=== PATIENT | female | born 1960 | race Caucasian/White ===

== ENCOUNTER → 2017-01-19 | Day surgery (SDC) | payer MEDICARE, OTHER ==
[~2017-01-19] MED LIST: ATOR20TA42 PO; CEPH-460 PO; CITA20 PO; CLON.5 PO; GABA300 PO; LACTATED RINGER'S 1000 ML INJ 1,000 ML ONE; PANT20 PO; PROPOFOL 200 MG/20 ML AMP IV ONE; TOFA5TAB PO; TRAZ50TA4 PO; UMEC1INH INH; WELL150T PO; [UNRECOGNIZED DRUG - OTHER] PO
--- NOTE | 2017-01-19 15:21 | GIPROC ---
[facility] [address] [facility], [id number] EGD PROCEDURE REPORT EXAM DATE: 01/19/2017 PATIENT NAME: Amena Stroud MR #: [id number] BIRTHDATE: 1960 ATTENDING: Mehreen Colin MD ORDER #: [id number] LIFE ADVISOR: STATUS: outpatient INDICATIONS: The patient is a 56 yr old female here for an EGD due to obesity clearence for gastric bypass PROCEDURE PERFORMED: EGD w/ biopsy MEDICATIONS: None and Per Anesthesia. TOPICAL ANESTHETIC: CONSENT: The patient understands the risks and benefits of the procedure and understands that these risks include, but are not limited to: sedation, allergic reaction, infection, perforation and/or bleeding. Alternative means of evaluation and treatment include, among others: physical exam, x-rays, and/or surgical intervention. The patient elects to proceed with this endoscopic procedure. medical equipment was checked for proper function. Hand hygiene and appropriate measures for infection prevention was taken. After the risks, benefits and alternatives of the procedure were thoroughly explained, Informed consent was verified, confirmed and timeout was successfully executed by the treatment team. The patient was anesthetized with topical anesthesia and the EC-[id number] ([id number]) endoscope was introduced through the mouth and advanced to the second portion of the duodenum. Retroflexed views revealed a hiatal hernia The gastroscope was then slowly withdrawn and removed. Gastritis antrum-biopsy esophagitis distal esophagus-biopsy. ADVERSE EVENTS: There were no complications. IMPRESSIONS: 1. Gastritis antrum-biopsy esophagitis distal esophagus-biopsy 2. Retroflexed views revealed a hiatal hernia RECOMMENDATIONS: 1. Anti-reflux regimen 2. Continue PPI 3. Avoid NSAIDS 4. Ok for gastric bypass surgery PATIENT CONDITION: stable DISPOSITION: Home REPEAT EXAM: EGD pending biopsy results Mehreen Colin MD eSigned: Mehreen Colin MD 01/19/2017 3:20 PM cc: Jael Zamudio [facility] Henna Abraham M.D.
== END | disposition home or self-care (01) ==
LOC: ESDC 12:39
PROVIDERS: ATTEND Internal Medicine Gastroenterology
DX: E66.01 Morbid (severe) obesity due to excess calories (principal); K29.70 Gastritis, unspecified, without bleeding; K20.9 Esophagitis, unspecified; K44.9 Diaphragmatic hernia without obstruction or gangrene
CPT/HCPCS: 00740; 43239; 88305; J3010; J7120

== ENCOUNTER 2017-01-27 10:50 | Emergency (ER) | payer MEDICARE, OTHER ==
[~2017-01-27 10:50] MED LIST changes: -CEPH-460 PO; -LACTATED RINGER'S 1000 ML INJ 1,000 ML ONE; -PROPOFOL 200 MG/20 ML AMP IV ONE; -TOFA5TAB PO; -UMEC1INH INH; -[UNRECOGNIZED DRUG - OTHER] PO
[2017-01-27 10:55] VITALS: BP 137/84; PULSE 84; RESP 16; TEMP 97.8; O2SAT 99
[2017-01-27] MEDS ORDERED: UMEC1INH INH (11:02)
[2017-01-27] MEDS ORDERED: [UNRECOGNIZED DRUG - OTHER] PO (11:02)
[2017-01-27] MEDS ORDERED: CEPH-460 PO (11:24)
--- NOTE | 2017-01-27 11:24 | PD ---
HPI Chief Complaint: Injury Time Seen by Provider: 11:22 Travel History International Travel<30 days: No Contact w/Intl Traveler<30days: No Traveled to known affect area: No History of Present Illness HPI 56-year-old male presents to the emergency department with complaint of right third toe pain from stubbing it on a bar stool this morning. Reports the nail bed back and may need to be removed. Denies paresthesias, loss of sensation to the affected toe. Has not taken any medications or tried any treatments to relieve her symptoms. is at the bedside and said the toenail was sticking straight up and he pushed it down. Wrapped the toe and a Band-Aid. Denies fever, vomiting. Allergies to codeine, erythromycin, penicillin. Is having gastric bypass surgery in 1 month and wants to make sure that she doesn' t get infection in the toe. She takes medication for rheumatoid arthritis that suppresses her immune system and the patient is requesting antibiotics. Has no other medical complaints. No other modifying factors or associated signs and symptoms. PFSH Past Medical History Arthritis: Yes (RA) Congestive Heart Failure: Yes Diminished Hearing: Yes (HEARING AIDS BILATERALLY) Endocrine: No Gastrointestinal Disorders: Yes GERD: Yes Glaucoma: No Genitourinary: No Hepatitis: No Hiatal Hernia: No Hypertension: No Immune Disorder: No Neurologic: No Psychiatric: Yes (See EMR) Reproductive: No Respiratory: No Thyroid Disease: No : 2 Para: 2 Past Surgical History Abdominal Surgery: Yes (CHOLECYSTECTOMY) Other Surgery: Yes Social History Alcohol Use: No Tobacco Use: No (pt states she quit smoking approximately 12 weeks ago ) Substance Use: No Allergies-Medications (Allergen,Severity, Reaction): Coded Allergies: Codeine (Verified Allergy, Intermediate, NAUSEA, HIVES, 01/27/17) Erythromycin (Verified Allergy, Intermediate, NAUSEA, HIVES, 01/27/17) Penicillin (Verified Allergy, Intermediate, NAUSEA, HIVES, 01/27/17) Reported Meds & Prescriptions Reported Meds & Active Scripts Active Keflex (Cephalexin) 500 Mg Cap 500 Mg PO Q8H 7 Days Desyrel 50 Mg Tab (Trazodone Hcl) 50 Mg Tab 50 Mg PO HS 10 Days Protonix (Pantoprazole Sodium) 20 Mg Tab 20 Mg PO BID 7 Days Neurontin (Gabapentin) 300 Mg Cap 600 Mg PO DAILY 10 Days Klonopin (Clonazepam) 0.5 Mg Tab 0.5 Mg PO Q12HR 10 Days Celexa 20 Mg Tab (Citalopram Hydrobromide) 20 Mg Tab 30 Mg PO DAILY 10 Days Wellbutrin Sr (Bupropion HCl) 150 Mg Tabcr 150 Mg PO BID 10 Days Lipitor 20 Mg Tab (Atorvastatin) 20 Mg Tab 20 Mg PO HS 7 Days Reported [Exljanz] 5 Mg PO BID Incruse Ellipta Inh (Umeclidinium [place] Inh) 0.0625 Mg/Act Inh 62.5 Mcg INH DAILY Review of Systems Except as stated in HPI: all other systems reviewed are Neg Physical Exam Narrative GENERAL: Well-nourished, well-developed female patient, in no acute distress SKIN: Warm and dry. Right third toenail is intact at the base and about longterm up the toenail; the toe is without deformity and with sensory intact; less than 3 second cap refill; toe is without edema, ecchymosis, erythema. HEAD: Atraumatic. Normocephalic. EYES: Pupils equal and round. No scleral icterus. No injection or drainage. ENT: Mucosa pink and moist. Airway patent. NECK: Trachea midline. CARDIOVASCULAR: Regular rate. RESPIRATORY: No accessory muscle use. GASTROINTESTINAL: Obese. MUSCULOSKELETAL: No obvious deformities. No clubbing. No cyanosis. No edema. NEUROLOGICAL: Awake and alert. Oriented 3. No obvious cranial nerve deficits. Motor grossly within normal limits. Normal speech. PSYCHIATRIC: Appropriate mood and affect; insight and judgment normal. Data Data Last Documented VS Vital Signs Date Time Temp Pulse Resp B/P Pulse Ox O2 Delivery O2 Flow Rate FiO2 01/27/17 10:55 97.8 84 16 137/84 99 [facility] Medical Decision Making Medical Screen Exam Complete: Yes Emergency Medical Condition: Yes Medical Record Reviewed: Yes Differential Diagnosis Toe fracture, toenail avulsion, toe contusion Narrative Course 56-year-old female with a right third toenail that is partially avulsed and a contusion to the toe. I offered to do an x-ray of the toe and the patient declined. I offered the patient a nonnarcotic for pain and she declined. Patient is requesting antibiotics because she is on a medication for her rheumatoid arthritis it suppresses her immune system and she is having surgery next month and does not want an infection. Keflex prescribed for home. Wound care provided and toes ishaan taped together. Patient verbalizes understanding and agreement with treatment plan. Patient is medically cleared and stable for discharge. Discussed reasons to return to the emergency department. Instructed patient to follow up with primary care provider. Patient agrees with treatment plan. The patients vital signs are stable and the patient is stable for outpatient follow-up and treatment. Patient discharged home, stable and in no acute distress. Diagnosis Primary Impression: Contusion of toe with damage to nail Qualified Code: S90.221A - Contusion of lesser toe of right foot with damage to nail, initial encounter Referrals: Primary Care Physician Patient Instructions: Contusion in Adults (ED), General Instructions, Nail Avulsion (ED) Additional Instructions: Ibuprofen or Tylenol as instructed nothing for pain and information Ice to affected toe to decrease pain and inflammation Ishaan tape toe as needed Follow-up with primary care provider Return to the emergency department immediately with worsening of symptoms Med/Other Pt SpecificInfo: Prescription(s) given, No Change to Meds Scripts Cephalexin (Keflex)500 Mg Raz242 Mg PO Q8H 7 Days Ref 0 Prov:Nellie Nicholson 01/27/17 Disposition: DISCHARGE HOME Condition: Stable Nellie Nicholson January 27, 2017 11:24
[2017-01-28] MEDS ORDERED: TOFA5TAB PO (10:53)
== END 2017-01-27 11:42 | disposition home or self-care (01) ==
LOC: NEPK 10:50
DX: S90.221A Contusion of right lesser toe(s) with damage to nail, initial encounter (principal); I50.9 Heart failure, unspecified; W22.03XA Walked into furniture, initial encounter; Y92.009 Unspecified place in unspecified non-institutional (private) residence as the place of occurrence of the external cause
CPT/HCPCS: 99283

== ENCOUNTER → 2017-02-05 | Outpatient (CLI) | payer MEDICARE, OTHER ==
[~2017-02-05] MED LIST changes: +CEPH-460 PO; +TOFA5TAB PO; +UMEC1INH INH
--- NOTE | 2017-02-20 09:16 | RSPPFT ---
DATE OF PROCEDURE: 02/05/17 COMMENTS: Spirometry shows FVC of 2.7 predicted 3.1, FEV1 of 1.9 predicted 2.3, FEV1/FVC ratio 69% predicted 24%. IMPRESSION: On the basis of the above, patient has a mild obstructive lung defect. Air trapping is present with RV at 2.9 predicted 1.8. DLCO is 78%.
== END ==
LOC: HRSP 07:13
PROVIDERS: ATTEND Internal Medicine Pulmonary Disease
DX: G47.30 Sleep apnea, unspecified (principal)
CPT/HCPCS: 94060; 94726; 94729

== ENCOUNTER 2017-04-07 16:22 | Inpatient (IN) | payer MEDICARE, OTHER ==
[~2017-04-07] VITALS: Ht 161.3 cm; Wt 113.7 kg
[2017-04-08] MEDS ORDERED: VANCOMYCIN 1,500 MG/NS 500 ML (for 85-99 kg) IV SCH ×2 (06:00)
[2017-04-08] MEDS ORDERED: metroNIDAZOLE 500 MG INJ 100 ML IV SCH (06:00)
[2017-04-08] MEDS ORDERED: ONDANSETRON HCL 4 MG/2 ML VIAL IV PUSH SCH (06:00)
[2017-04-08] MEDS ORDERED: SCOPOLAMINE 1.5 MG PATCH T-DERMAL SCH (06:00)
[2017-04-08] MEDS ORDERED: APREPITANT 40 MG CAP PO SCH (06:00)
[2017-04-08] MEDS ORDERED: ACETAMINOPHEN 1000 MG/100 ML VIAL IV SCH (06:00)
[2017-04-08] MEDS ORDERED: SODIUM CHLORID 0.9% 500 ML IV PRN (07:00)
[2017-04-08] MEDS ORDERED: POVIDONE IODINE 5% (ANTISEPSIS KIT) 4 APPLICATIONS EACH NARE PRN (07:00)
[2017-04-08] MEDS ORDERED: LACTATED RINGER'S 1000 ML IV PRN (07:00)
[2017-04-08] MEDS ORDERED: INSULIN HUMAN REGULAR 1,000 UNITS/10 ML VIAL SQ PRN (07:00)
[2017-04-08] MEDS ORDERED: METOPROLOL TARTRATE 25 MG TAB PO PRN (07:00)
[2017-04-08] MEDS ORDERED: CHLORHEXIDINE GLUCONATE 2 % 1 PACK (2 CLOTHS) TOPICAL PRN (07:00)
[2017-04-08] MEDS ORDERED: PANT40TA3 PO (07:02)
[2017-04-08] MEDS ORDERED: TOFA5TAB PO (07:02)
[2017-04-08] MEDS ORDERED: TRAZ50TA12 PO (07:02)
[2017-04-08] MEDS ORDERED: BUPR150CR PO (07:02)
[2017-04-08] MEDS ORDERED: ATOR20TA15 PO (07:02)
[2017-04-08] MEDS ORDERED: GABA600T PO (07:02)
[2017-04-08] MEDS ORDERED: CLON0.5T PO (07:02)
[2017-04-08] MEDS ORDERED: UMEC1INH INH (07:02)
[2017-04-08] MEDS ORDERED: CITA20TA4 PO (07:02)
[2017-04-08] MEDS ORDERED: SODIUM CHLOR 0.9% 250 ML INJ 250 ML ONE (07:03)
[2017-04-08] MEDS ORDERED: VANCOMYCIN HCL 1000 MG VIAL ONE (07:03)
[2017-04-08 07:10] VITALS: BP 111/46; PULSE 66; RESP 16; TEMP 97.8; O2SAT 96
[2017-04-08] MEDS ORDERED: MIDAZOLAM HCL 2 MG/2 ML VIAL ONE (09:24)
[2017-04-08] MEDS ORDERED: FAMOTIDINE 20 MG/2 ML VIAL ONE (09:24)
[2017-04-08] MEDS ORDERED: BUPIVACAINE LIPOSOME PF 1.3% 20 ML VIAL INFIL ONE (10:09)
[2017-04-08] MEDS ORDERED: METHYLENE BLUE 100 MG/10 ML VIAL OTHER ONE (10:09)
[2017-04-08] MEDS ORDERED: DO NOT ADM ANY ANTICOAGULANT DRUGS PRN (11:35)
[2017-04-08] MEDS ORDERED: ONDANSETRON HCL 4 MG/2 ML VIAL IV PRN (11:45)
[2017-04-08] MEDS ORDERED: ENALAPRILAT 1.25 MG/ML VIAL IV PUSH PRN (11:45)
[2017-04-08] MEDS ORDERED: Post-op Orders (for Pharmacy) MISC OTHER ONE (11:45)
[2017-04-08] MEDS ORDERED: diphenhydrAMINE HCL 50 MG/ML VIAL IV PRN (11:45)
[2017-04-08] MEDS ORDERED: SODIUM CHLORIDE 0.9% FLUSH 10 ML FLUSH IV FLUSH PRN (11:45)
[2017-04-08] MEDS ORDERED: diphenhydrAMINE HCL ELIXIR 12.5 MG/5 ML CUP PO PRN (11:45)
[2017-04-08] MEDS ORDERED: 1/2 NS + KCL 20 MEQ INJ 1,000 ML ONE (11:50)
[2017-04-08] MEDS ORDERED: *ONDANSETRON 4 MG VIAL PERIprocedural Use ONLY ONE (11:51)
[2017-04-08] MEDS: 1/2 NS + KCL 20 MEQ INJ 1,000 ML IV SCH ×3 (11:56→21:06)
[2017-04-08] MEDS ORDERED: ePHEDrine/NS 25 MG/5 ML SYR IV ONE (12:00)
[2017-04-08] MEDS ORDERED: PROPOFOL 200 MG/20 ML AMP IV ONE (12:00)
[2017-04-08] MEDS ORDERED: *PROMETHAZINE 25 MG/ML VIAL PERIprocedural use ONLY ONE (12:00)
[2017-04-08] MEDS ORDERED: NEOSTIGMINE 3 MG/3 ML SYR IV ONE (12:00)
[2017-04-08] MEDS ORDERED: LACTATED RINGER'S 1000 ML INJ 1,000 ML IV ONE (12:00)
[2017-04-08] MEDS ORDERED: ONDANSETRON HCL 4 MG/2 ML VIAL IV PUSH ONE (12:00)
[2017-04-08] MEDS ORDERED: ACETAMINOPHEN 1000 MG/100 ML VIAL IV ONE (12:00)
[2017-04-08] MEDS: RESP: ALBUTEROL 2.5 MG/3 ML NEB (SCH) INH ×2 (12:00→20:00)
[2017-04-08] MEDS ORDERED: *morphine SULFATE 8 MG/ML PERIprocedure ONLY ONE ×2 (12:39→12:51)
[2017-04-08] MEDS: METOCLOPRAMIDE HCL 10 MG/2 ML VIAL IV PUSH SCH ×2 (13:00→17:31)
[2017-04-08 14:16] VITALS: BP 148/71; PULSE 68; RESP 19; TEMP 95.5; O2SAT 96
[2017-04-08 16:00] VITALS: BP 137/64; PULSE 88; RESP 18; TEMP 95.4; O2SAT 96
[2017-04-08] MEDS: metroNIDAZOLE 500 MG INJ 100 ML IV SCH (16:22)
[2017-04-08] MEDS: ENOXAPARIN SODIUM 40 MG/0.4 ML SYRINGE SQ SCH (16:23)
[2017-04-08 20:00] VITALS: BP 112/58; PULSE 76; RESP 20; TEMP 97.2; O2SAT 95
[2017-04-08] MEDS: SODIUM CHLORIDE 0.9% FLUSH 10 ML FLUSH IV FLUSH SCH (21:06)
[2017-04-08] MEDS: VANCOMYCIN INJ 1,000 MG in SODIUM CHLOR 0.9% 250 ML INJ 250 ML IV SCH (21:07)
[2017-04-09] VITALS (8 sets, daily range): BP systolic 121–175; BP diastolic 58–77; PULSE 76–99; RESP 18–20; TEMP 97.9–100.5; O2SAT 90–97
[2017-04-09] MEDS: RESP: ALBUTEROL 2.5 MG/3 ML NEB (SCH) INH ×6 (00:40→20:31)
[2017-04-09] MEDS: metroNIDAZOLE 500 MG INJ 100 ML IV SCH ×2 (01:56→09:18)
[2017-04-09] MEDS: METOCLOPRAMIDE HCL 10 MG/2 ML VIAL IV PUSH SCH ×2 (01:56→06:09)
[2017-04-09] MEDS: 1/2 NS + KCL 20 MEQ INJ 1,000 ML IV SCH ×5 (01:56→21:13)
[2017-04-09 08:33] LABS: AUTOMATED NEUTROPHIL # 9.4 TH/MM3 (1.8-7.7); BASOPHIL % 0.1 % (0.0-2.0); EOSINOPHIL % 0.1 % (0.0-4.0); HEMATOCRIT 33.1 % (35.0-46.0); HEMO FLAGS DIFF FINAL; LYMPH % 4.1 % (9.0-44.0); LYMPHOCYTE # 0.4 TH/MM3 (1.0-4.8); MEAN CELL VOLUME 82.2 FL (80.0-100.0); MEAN CORPUSCULAR HEMOGLOBIN 26.1 PG (27.0-34.0); MEAN CORPUSCULAR HGB CONC 31.7 % (32.0-36.0); MONO % 6.2 % (0.0-8.0); NEUT % 89.5 % (16.0-70.0); PLATELET COUNT 292 TH/MM3 (150-450); RED BLOOD COUNT 4.03 MIL/MM3 (4.00-5.30); RED CELL DISTRIBUTION WIDTH 16.1 % (11.6-17.2); WHITE BLOOD COUNT 10.5 TH/MM3 (4.0-11.0)
[2017-04-09 09:00] LABS: BICARBONATE 22.3 MEQ/L (21.0-32.0)
[2017-04-09] MEDS: SODIUM CHLORIDE 0.9% FLUSH 10 ML FLUSH IV FLUSH SCH ×2 (09:00→21:00)
[2017-04-09] MEDS: VANCOMYCIN INJ 1,000 MG in SODIUM CHLOR 0.9% 250 ML INJ 250 ML IV SCH (09:17)
[2017-04-09] MEDS: PANTOPRAZOLE SOD 40 MG DELAYED RELEASE TAB PO SCH (09:17)
[2017-04-09] MEDS: HYDROmorphone HCL 2 MG TAB PO PRN ×2 (09:37→21:06)
[2017-04-09] MEDS ORDERED: OXYBUTYNIN CHLORIDE 5 MG TAB PO ONE (09:45)
--- NOTE | 2017-04-09 10:08 | HHI.PR ---
Subjective Subjective Notes 56yo female POD#1 RNY. Laying in bed, unable to swallow PO pain meds. Has not been ambulating or tolerating PO fluids. Was having problems with urinary retention overnight, was able to void on her own this morning. Complains of gas pains Objective Vitals/I&O Vital Signs, 24 Hour Date Time Temp Pulse Resp B/P Pulse Ox O2 Delivery O2 Flow Rate FiO2 04/09/17 08:35 Nasal Cannula 3.00 04/09/17 08:00 98.0 85 18 134/66 97 04/09/17 04:00 97.9 82 18 136/64 95 04/09/17 00:00 98.4 76 20 130/62 95 04/08/17 20:00 97.2 76 20 112/58 95 04/08/17 20:00 Nasal Cannula 3.00 04/08/17 16:00 95.4 88 18 137/64 96 04/08/17 14:16 95.5 68 19 148/71 96 04/08/17 13:45 97.5 81 13 109/56 97 Nasal Cannula 3 04/08/17 13:00 71 12 109/53 94 Nasal Cannula 3 04/08/17 12:45 74 14 106/53 94 Nasal Cannula 3 04/08/17 12:30 76 16 117/58 96 Nasal Cannula 3 04/08/17 12:15 75 16 114/57 95 Nasal Cannula 4 04/08/17 12:00 80 15 109/53 94 Nasal Cannula 4 04/08/17 11:45 82 17 116/56 95 Nasal Cannula 4 04/08/17 11:44 97.5 86 17 150/63 98 Nasal Cannula 4 Allergies Coded Allergies Codeine (Verified Allergy, Intermediate, NAUSEA, HIVES, 01/27/17) Erythromycin (Verified Allergy, Intermediate, NAUSEA, HIVES, 01/27/17) Penicillin (Verified Allergy, Intermediate, NAUSEA, HIVES, 01/27/17) Orders-Kiarra Gamez Procedure Category Date Status Time Oxybutynin (Ditropan) MED 04/09/17 Logged 09:45 Bladder Scan NKECHI 04/09/17 In Process 09:42 Bupropion Sr MED 04/09/17 Logged (Wellbutrin Sr) 21:00 Citalopram (Celexa) MED 04/09/17 Logged 09:45 Gabapentin (Neurontin) MED 04/09/17 Logged 21:00 Trazodone (Desyrel) MED 04/09/17 Logged 21:00 (Nf) Umeclidinium MED 04/10/17 Logged Finley Inh (Incruse E 09:00 Laboratory Tests per Birgit Test 04/09/17 07:58 White Blood Count 10.5 TH/MM3 Red Blood Count 4.03 MIL/MM3 Sodium Level 136 MEQ/L Potassium Level 4.0 MEQ/L Blood Urea Nitrogen 8 MG/DL Active Scripts Active Reported Clonazepam 0.5 Mg Tab 0.25 Mg PO HS Trazodone (Trazodone HCl) 50 Mg Tab 50 Mg PO HS Atorvastatin (Atorvastatin Calcium) 20 Mg Tab 20 Mg PO HS Gabapentin 600 Mg Tab 600 Mg PO HS Xeljanz (Tofacitinib) 5 Mg Tab 5 Mg PO BID Wellbutrin SR 12 HR (Bupropion HCl) 150 Mg Tab 150 Mg PO Q12HR Citalopram (Citalopram Hydrobromide) 20 Mg Tab 20 Mg PO DAILY Pantoprazole (Pantoprazole Sodium) 40 Mg Tab 40 Mg PO DAILY Incruse Ellipta Inh (Umeclidinium [place] Inh) 0.0625 Mg/Act Inh 62.5 Mcg INH DAILY Vital Signs Date Time Temp Pulse Resp B/P Pulse Ox O2 Delivery O2 Flow Rate FiO2 04/09/17 08:35 Nasal Cannula 3.00 04/09/17 08:00 98.0 85 18 134/66 97 Labs Laboratory Tests Test 04/09/17 07:58 White Blood Count 10.5 Red Blood Count 4.03 Hemoglobin 10.5 Hematocrit 33.1 Mean Corpuscular Volume 82.2 Mean Corpuscular Hemoglobin 26.1 Mean Corpuscular Hemoglobin 31.7 Concent Red Cell Distribution Width 16.1 Platelet Count 292 Mean Platelet Volume 8.1 Neutrophils (%) (Auto) 89.5 Lymphocytes (%) (Auto) 4.1 Monocytes (%) (Auto) 6.2 Eosinophils (%) (Auto) 0.1 Basophils (%) (Auto) 0.1 Neutrophils # (Auto) 9.4 Lymphocytes # (Auto) 0.4 Monocytes # (Auto) 0.6 Eosinophils # (Auto) 0.0 Basophils # (Auto) 0.0 CBC Comment DIFF FINAL Differential Comment Sodium Level 136 Potassium Level 4.0 Chloride Level 107 Carbon Dioxide Level 22.3 Anion Gap 7 Blood Urea Nitrogen 8 Creatinine 0.49 Estimat Glomerular Filtration 130 Rate Random Glucose 113 Calcium Level 8.4 Magnesium Level 2.0 Cardiovascular: Regular Lungs: Clear Abdomen: Post-op tenderness (slight distention) Extremities: Perfused Wound Wound : Wound Location: Abdomen Appearance: Clean & Dry A/P Assessment and Plan Oxybutynin x1 dose if needed Will change oral pain meds to liquid Continue to increase fluids as tolerated Needs to ambulate at least 4 times a day. The exam, history, and the medical decision-making described in the above note were completed with the assistance of the mid-level provider. I reviewed and agree with the findings presented. I attest that I had a djup-ib-nuer encounter with the patient on the same day, and personally performed and documented my assessment and findings in the medical record. Discharge Planning D/C home most likely tomorrow pending hospital course Kiarra Gamez Apr 09, 2017 10:08 Godwin Dupree MD Apr 10, 2017 12:25
[2017-04-09] MEDS: CITALOPRAM HYDROBROMIDE 20 MG TAB PO SCH (10:15)
[2017-04-09] MEDS ORDERED: INCRUSE ELLIPTA 62.5 MCG INH SCH (10:15)
[2017-04-09] MEDS ORDERED: METOCLOPRAMIDE HCL 10 MG/2 ML VIAL IV PUSH PRN (11:45)
--- NOTE | 2017-04-09 16:21 | MP ---
cc: NISREEN DUPREE DATE OF SURGERY: 04/08/2017. PREOPERATIVE DIAGNOSIS: Morbid obesity with a BMI of 41 complicated by hyperlipidemia and obstructive sleep apnea. POSTOPERATIVE DIAGNOSIS: Morbid obesity with a BMI of 41 complicated by hyperlipidemia and obstructive sleep apnea. OPERATIVE PROCEDURE PERFORMED: Laparoscopic Pelon-en-Y gastric bypass with 100 cm Pelon limb antegastric antecolic. SURGEON: Nisreen Dupree MD. ANESTHESIA: General endotracheal anesthesia ESTIMATED BLOOD LOSS: Scant. FINDINGS: Fatty liver. SPECIMENS: None. COMPLICATIONS: None. DESCRIPTION OF THE PROCEDURE IN DETAIL: The patient was brought to the operating room and placed on the operating table in supine position, bilateral sequential inflation device placed on lower extremities, general anesthesia instituted, antibiotics initiated. The abdomen was prepped and draped sterilely. A poin 18-cm distal to the xiphoid in the midline anesthetized with 0.25% Marcaine with epinephrine. The skin incision was made, a 5-mm OptiView port placed under direct vision and pneumoperitoneum was created. Under direct vision a 5-mm left upper quadrant, 12-mm left upper quadrant, 12-mm right upper quadrant and 5-mm right upper quadrant ports were placed. Prior to placement of all ports, the skin and peritoneum were anesthetized with 0.25% Marcaine with epinephrine. The patient's omentum was lifted into the upper abdomen. It was split down the middle to create a path for the Pelon limb. The ligament of Treitz was identified, a point 40 cm distal identified. The small bowel was divided in this region using an [place] Flex stapler vascular load reinforced with SeamGuard. The distal segment was brought up for a distance of 100 cm, enterotomy created in this region, enterotomy in the biliopancreatic limb and a svxs-da-[id number] stapled jejunojejunostomy created in the usual manner. The mesenteric defect at the jejunojejunostomy was closed with 2-0 Surgidac suture in a running manner. The patient was placed in reverse Trendelenburg position with the left side up. The Gabrielle-Flex retractor was placed. The left lobe of the liver was retracted. The angle of His was taken down bluntly, a point 5 cm distal to the GE junction along the lesser curve identified, the lesser sac entered using blunt dissection. The stomach was partitioned horizontally using an [place]-Flex stapler blue load, an additional firing taken directed towards the angle of His to completely divide the stomach. A gastrotomy created in the new stomach, enterotomy in the Pelon limb and gastrojejunostomy created, stomal opening of 2 cm. An 18-Tu[place] OG tube was placed across the anastomosis, the defect then closed in two layers of running 2-0 Vicryl. Prior to placement of the second layer, methylene blue instilled through the OG tube. There was no evidence of extravasation. Evicel was then placed over the gastrojejunostomy, jejunojejunostomy and all staple lines. The operative field inspected and hemostasis was present. The CO2 was released, all ports were removed. All skin incisions were closed with 4-0 Monocryl. The abdominal wall was cleaned and a sterile dressing placed. The patient was awakened and taken to the recovery room. MD TERRI Myers/TAPAN /12:05 PM /4:19 PM
[2017-04-09] MEDS: ENOXAPARIN SODIUM 40 MG/0.4 ML SYRINGE SQ SCH (16:34)
[2017-04-09] MEDS ORDERED: buPROPion HCL 150 MG SUSTAINED RELEASE TAB PO SCH (21:00)
[2017-04-09] MEDS: buPROPion HCL 75 MG TAB PO SCH (21:00)
[2017-04-09] MEDS ORDERED: GABAPENTIN 300 MG CAP PO SCH (21:00)
[2017-04-09] MEDS ORDERED: traZODone HCL 50 MG TAB PO SCH (21:00)
[2017-04-10] VITALS: BP 130/58; PULSE 96; RESP 20; TEMP 97.9; O2SAT 94
[2017-04-10] MEDS: RESP: ALBUTEROL 2.5 MG/3 ML NEB (SCH) INH ×3 (00:02→08:43)
[2017-04-10 00:04] VITALS: O2SAT 91
[2017-04-10] MEDS ORDERED: HYDROmorphone HCL PF 1 MG/ML VIAL IV PRN (00:45)
[2017-04-10] MEDS: 1/2 NS + KCL 20 MEQ INJ 1,000 ML IV SCH ×3 (04:30→12:30)
[2017-04-10 08:00] VITALS: BP 115/58; PULSE 74; RESP 16; TEMP 97.6; O2SAT 95
[2017-04-10] MEDS: SODIUM CHLORIDE 0.9% FLUSH 10 ML FLUSH IV FLUSH SCH (08:16)
[2017-04-10] MEDS: PANTOPRAZOLE SOD 40 MG DELAYED RELEASE TAB PO SCH (08:16)
[2017-04-10] MEDS: CITALOPRAM HYDROBROMIDE 20 MG TAB PO SCH (08:16)
[2017-04-10] MEDS: buPROPion HCL 75 MG TAB PO SCH (08:16)
[2017-04-10 08:44] VITALS: O2SAT 92
[2017-04-10 12:00] VITALS: BP 107/53; PULSE 87; RESP 17; TEMP 98.8; O2SAT 93
--- NOTE | 2017-04-10 12:46 | HHI.PR ---
Subjective Subjective Notes POD#2 RNY. Sitting up in chair. Tolerating PO medications and fluids. Able to void and verbalizes relief with nausea Objective Vitals/I&O Vital Signs Date Time Temp Pulse Resp B/P Pulse Ox O2 Delivery O2 Flow Rate FiO2 04/10/17 08:44 92 21 04/10/17 08:15 Nasal Cannula 2.00 04/10/17 08:00 97.6 74 16 115/58 Cardiovascular: Regular Lungs: Clear Abdomen: Post-op tenderness Extremities: Perfused Wound Wound : Wound Location: Abdomen Appearance: Clean & Dry A/P Assessment and Plan Continue to increase fluids as tolerated Continue with frequent ambulation Discharge Planning D/C home later today Kiarra Gamez Apr 10, 2017 12:46
[2017-04-10] MEDS: HYDROmorphone HCL 2 MG TAB PO PRN (15:23)
[2017-04-10 18:30] VITALS: O2SAT 93
== END 2017-04-10 18:29 | disposition home or self-care (01) | DRG 621 ==
LOC: HSDI 04-08 05:32 → N07A 04-08 14:06
PROVIDERS: ADMIT Surgery; ATTEND Surgery
PROC: 0D164ZA Bypass Stomach to Jejunum, Percutaneous Endoscopic Approach (ICD-10-PCS; principal; 2017-04-08 09:41)
DX: E66.01 Morbid (severe) obesity due to excess calories (principal); K76.0 Fatty (change of) liver, not elsewhere classified; Z68.41 Body mass index [BMI] 40.0-44.9, adult; G47.33 Obstructive sleep apnea (adult) (pediatric); E78.5 Hyperlipidemia, unspecified; R33.9 Retention of urine, unspecified
CPT/HCPCS: 80048; 83735; 85025; 94150; 94640; 94664; C9290; J0131; J1170; J1650; J2250; J2270; J2405; J2550; J2710; J2765; J3010; J3370; J7040; J7050; J7120; J7613; J8501